=== PATIENT | male | born 1995 | race American Indian/Alaskan Native ===

== ENCOUNTER 2019-05-21 13:26 | Emergency (ER) | payer SELFPAY ==
[2019-05-21] MEDS ORDERED: IBUPROFEN PO ONE (13:31)
[2019-05-21 13:33] VITALS: BP 135/88
--- NOTE | 2019-05-21 13:37 | Emergency Department Report ---
Abscess Boil HPI - HPI Chief Complaint: Wound/Laceration Stated Complaint: SPIDER BITE Time Seen by Provider: 05/21/19 13:31 Duration: 5 Days Location: Head Severity: Mild History: Yes Purulent Drainage, No Fever, No Pain, No Numbness, No Foreign Body, No Previous History, No Insect Bite HPI: Presents with a several day history of an insect bite on forehead. Pt has popped it. Hard and painful. only one lesion; not acne Home Medications: Previous Rx's Medication Instructions Recorded Last Taken Type Amoxicillin [Trimox CAP] 500 mg PO Q8H #30 capsule 05/21/19 Unknown Rx Allergies/Adverse Reactions: Allergies Allergy/AdvReac Type Severity Reaction Status Date / Time [facility]atives Allergy Itching Verified 05/21/19 13:33 ED Review of Systems ROS: Stated complaint: SPIDER BITE Other details as noted in HPI Comment: All other systems reviewed and negative ED Past Medical Hx - Past Medical History Previous Medical History?: No - Surgical History Past Surgical History?: No - Family History Family history: no significant - Social History Smoking Status: Current Every Day Smoker - Medications Home Medications: Home Medications Medication Instructions Recorded Confirmed Last Taken Type Amoxicillin [Trimox CAP] 500 mg PO Q8H #30 capsule 05/21/19 Unknown Rx ED Abscess Boil Physical Exam - Exam General: Vital signs noted. No distress. Alert and acting appropriately. Size: 1 cm Exam: Yes Tenderness, Yes Fluctuance, Yes Surrounding Cellulites/Erythema, Yes Heart Murmur, Yes Normal Neurologic Exam, Yes Normal Circulation, No Lymphangitis, No Crepitation Critical care attestation.: If time is entered above; I have spent that time in minutes in the direct care of this critically ill patient, excluding procedure time. ED Medical Decision Making - Medical Decision Making wound clean VSS no fever no systemic symptoms no necrosis dc home with rx and wound care Vital Signs 05/21/19 13:32 Temperature 98.1 F Pulse Rate 50 L Respiratory 18 Rate Blood Pressure 135/88 [Right] O2 Sat by Pulse 99 Oximetry - Differential Diagnosis simple wound ED Disposition Clinical Impression: Abscess, Insect bite Disposition: DC-01 TO HOME OR SELFCARE Is pt being admited?: No Does the pt Need Aspirin: No Condition: Stable Instructions: Abscess (ED) Additional Instructions: WARM COMPRESSES ALLOW THIS TO FORM A HEAD AND POP ON ITS OWN DO NOT TOUCH IT OTHER THAN TO WASH WITH SOAP AND WATER NO PEROXIDE OR LOTIONS MED ORDERED TODAY MOTRIN OR TYLENOL FOR PAIN FOLLOW UP WITH DERM MD IF PERSISTS REFERRAL BELOW Prescriptions: Amoxicillin [Trimox CAP] 500 mg PO Q8H #30 capsule Referrals: NEO HOROWITZ MD [Referring] - 3-5 Days Time of Disposition: 13:34
== END 2019-05-21 14:04 | disposition home or self-care (01) ==
LOC: ED 13:26
DX: S00.86XA Insect bite (nonvenomous) of other part of head, initial encounter (principal); L02.01 Cutaneous abscess of face; F17.200 Nicotine dependence, unspecified, uncomplicated; Z91.018 Allergy to other foods; W57.XXXA Bitten or stung by nonvenomous insect and other nonvenomous arthropods, initial encounter; Y93.89 Activity, other specified; Y92.89 Other specified places as the place of occurrence of the external cause; Y99.8 Other external cause status